=== PATIENT | female | born 1945 | race Hispanic/Latino ===

== ENCOUNTER 2017-12-05 15:30 | Observation (INO) | payer OTHER, MEDICARE ==
[~2017-12-05] VITALS: Ht 157.5 cm; Wt 97.1 kg
[~2017-12-05 15:30] MED LIST: FENO145T37 PO; GLIP10TA9 PO; HYDR25TA PO; ROSU10TA PO
[2017-12-05 17:01] VITALS: BP 138/64
[2017-12-05 17:15] LABS: CREATININE 1.4 mg/dL (0.5-1.5); POTASSIUM 4.1 mmol/L (3.5-5.1)
[2017-12-05 17:16] LABS: INR 0.97 (0.85-1.15); PARTIAL THROMBOPLASTIN TIME 25.4 SEC (26.3-35.5); PROTHROMBIN TIME 10.2 SEC (9.6-11.6)
[2017-12-05] MEDS ORDERED: MECL-111 PO (17:21)
[2017-12-05] MEDS ORDERED: RANI150T7 PO (17:22)
[2017-12-05] MEDS ORDERED: PREVAGEN PO (17:22)
[2017-12-05] MEDS ORDERED: FISH1CAP63 PO (17:22)
[2017-12-05] MEDS ORDERED: LISI2.5T2 PO (17:22)
[2017-12-08] VITALS (22 sets, daily range): BP systolic 35–149; BP diastolic 58–80
[2017-12-08] MEDS ORDERED: SODIUM CHLORIDE 0.9% 1000ML 1,000 ML IV ONE (07:50)
[2017-12-08] MEDS: CEFAZOLIN SODIUM 1 GM VIAL IVP ONE ×2 (07:59→10:25)
[2017-12-08] MEDS ORDERED: WATER FOR INJECTION,STERILE 20 ML VIAL IJ ONE (08:00)
[2017-12-08] MEDS ORDERED: ACETAMINOPHEN EXTRA STRENGTH 500 MG TABLET ONE (08:26)
[2017-12-08] MEDS ORDERED: OXYCODONE HCL 10 MG TAB.SR.12H PO ONE (08:27)
[2017-12-08] MEDS ORDERED: KETOROLAC TROMETHAMINE 15MG/ML ONE (08:27)
[2017-12-08] MEDS ORDERED: CEFAZOLIN SODIUM 1 GM VIAL ONE (09:36)
[2017-12-08] MEDS ORDERED: BUPIVACAINE/EPI/PF 0.25% 30ML VIAL IJ ONE (09:36)
[2017-12-08] MEDS ORDERED: TRANEXAMIC ACID 1000MG/10ML IV ONE (09:37)
[2017-12-08] MEDS ORDERED: ROPIVACAINE 0.5% 5MG/ML 30ML IJ ONE (10:02)
[2017-12-08] MEDS ORDERED: DEXAMETHASONE SOD PHOSPHATE 10MG/ML 1ML VIAL ONE (10:03)
[2017-12-08] MEDS ORDERED: LIDOCAINE PF 2% 5ML ABBOJECT ONE (10:03)
[2017-12-08] MEDS ORDERED: MIDAZOLAM HCL 1 MG/ML 2ML VIAL ONE (10:03)
[2017-12-08] MEDS ORDERED: PROPOFOL 10 MG/ML 20ML VIAL IV ONE (10:03)
[2017-12-08] MEDS ORDERED: GLYCOPYRROLATE 0.2 MG/ML 5 ML VIAL ONE (10:03)
[2017-12-08] MEDS ORDERED: FENTANYL CITRATE PF 50 MCG/1 ML 2ML VIAL ONE ×2 (10:03→10:52)
[2017-12-08] MEDS ORDERED: ONDANSETRON HCL 4 MG/2 ML VIAL ONE (10:03)
[2017-12-08] MEDS ORDERED: FERROUS FUMARATE 324 MG TABLET PO PRN (12:00)
[2017-12-08] MEDS ORDERED: POTASSIUM CHLORIDE 20MEQ/100ML 100 ML IV PRN (12:00)
[2017-12-08] MEDS ORDERED: LIDOCAINE HCL-MPF 1% 2ML VIAL IVP PRN (12:00)
[2017-12-08] MEDS ORDERED: TEMAZEPAM 15 MG CAPSULE PO PRN (12:00)
[2017-12-08] MEDS: ACETAMINOPHEN EXTRA STRENGTH 500 MG TABLET PO SCH ×2 (12:00→22:01)
[2017-12-08] MEDS ORDERED: ONDANSETRON HCL 4 MG/2 ML VIAL IVP PRN (12:00)
[2017-12-08] MEDS ORDERED: POTASSIUM CHLORIDE 20 MEQ ERTAB PO PRN (12:00)
[2017-12-08] MEDS ORDERED: POTASSIUM CHLORIDE 10% ELIXIR 20 MEQ/15 ML UDCUP PO PRN (12:00)
[2017-12-08] MEDS ORDERED: TRAMADOL HCL 50 MG TABLET PO PRN (12:00)
[2017-12-08] MEDS ORDERED: KETOROLAC TROMETHAMINE 15MG/ML IV PRN (12:00)
[2017-12-08] MEDS ORDERED: DiphenhydrAMINE HCL 50 MG/ML VIAL IVP PRN (12:00)
[2017-12-08] MEDS ORDERED: CALCIUM CARBONATE 500 MG TABLET PO PRN (12:00)
[2017-12-08] MEDS ORDERED: OXYCODONE HCL 5 MG TAB PO PRN (12:00)
[2017-12-08] MEDS ORDERED: MORPHINE SULFATE 4 MG/1ML SYG ONE (12:27)
[2017-12-08] MEDS ORDERED: MEPERIDINE-PF 25 MG/ML SYG ONE (12:40)
[2017-12-08] MEDS: INSULIN HUMULIN R 100 UNIT/ML 3ML SQ SCH ×2 (16:23→21:00)
[2017-12-08] MEDS ORDERED: CEFAZOLIN 2GM / 50 ML 50 ML IV SCH (17:00)
[2017-12-08] MEDS: CEFAZOLIN SODIUM 1 GM VIAL IVP SCH (17:13)
[2017-12-08] MEDS ORDERED: MECLIZINE HCL 25 MG TABLET PO PRN (19:45)
[2017-12-08] MEDS: SODIUM CHLORIDE 0.9% 1000ML 1,000 ML IV SCH (20:11)
[2017-12-08] MEDS: PREGABALIN 25 MG CAP PO SCH (20:13)
[2017-12-08] MEDS: ASPIRIN 325 MG TABLET PO SCH (20:13)
[2017-12-08] MEDS ORDERED: NON-FORMULARY MEDICATION 1 EACH (Ranitidine HCl 150 MG) PO SCH (21:00)
[2017-12-08] MEDS ORDERED: ONDANSETRON HCL MDV 20ML 2 MG/ML VIAL IVP PRN (21:30)
[2017-12-08] MEDS: GLIPIZIDE 5 MG TABLET PO SCH (22:00)
[2017-12-08] MEDS: ATORVASTATIN CALCIUM 20 MG TABLET PO SCH (22:00)
[2017-12-09] VITALS: BP 110/63
[2017-12-09] MEDS: CEFAZOLIN SODIUM 1 GM VIAL IVP SCH (01:05)
[2017-12-09] MEDS: ACETAMINOPHEN EXTRA STRENGTH 500 MG TABLET PO SCH ×3 (02:50→21:38)
[2017-12-09 03:48] VITALS: BP 109/51
[2017-12-09 06:22] LABS: HEMATOCRIT 28.2 % (36-48); MEAN CORPUSCULAR HEMOGLOBIN 31.6 pg (27.0-33.0); MEAN CORPUSCULAR HGB CONC 35.5 g/dL (32.0-36.0); MEAN CORPUSCULAR VOLUME 88.8 fL (79-99); PLATELET COUNT (AUTO) 137 K/uL (130-400); RED BLOOD CELL COUNT(AUTO) 3.18 MIL/uL (4.00-5.50); RED CELL DISTRIBUTION WIDTH 13.7 % (11.0-15.5); WHITE BLOOD COUNT (AUTO) 7.1 K/uL (4.8-10.8)
[2017-12-09] MEDS: INSULIN HUMULIN R 100 UNIT/ML 3ML SQ SCH ×3 (06:32→16:29)
[2017-12-09 06:35] LABS: CREATININE 1.4 mg/dL (0.5-1.5); POTASSIUM 3.9 mmol/L (3.5-5.1)
[2017-12-09 07:49] VITALS: BP 141/93
[2017-12-09] MEDS: SODIUM CHLORIDE 0.9% 1000ML 1,000 ML IV SCH (07:52)
[2017-12-09] MEDS: ASPIRIN 325 MG TABLET PO SCH ×2 (08:53→21:36)
[2017-12-09] MEDS: GLIPIZIDE 5 MG TABLET PO SCH ×2 (08:53→21:36)
[2017-12-09] MEDS: PREGABALIN 25 MG CAP PO SCH ×2 (08:53→21:36)
[2017-12-09] MEDS ORDERED: FAMOTIDINE 20MG TAB 20 MG TAB PO SCH (09:00)
[2017-12-09] MEDS ORDERED: HYDROCHLOROTHIAZIDE 25 MG TABLET PO SCH (09:00)
[2017-12-09] MEDS ORDERED: FENOFIBRATE NANOCRYSTALLIZED 145 MG TAB PO SCH (09:00)
[2017-12-09] MEDS ORDERED: PREVAGEN PO SCH (09:00)
[2017-12-09] MEDS ORDERED: LISINOPRIL 2.5 MG TABLET PO SCH (09:00)
[2017-12-09] MEDS ORDERED: POLYETHYLENE GLYCOL 3350 17 GM POWD.PACK PO SCH (09:00)
[2017-12-09] MEDS: OXYCODONE HCL 5 MG TAB PO PRN ×2 (11:18→21:18)
[2017-12-09 11:36] VITALS: BP 115/58
[2017-12-09 16:25] VITALS: BP 98/65
[2017-12-09] MEDS ORDERED: HYDR-309 PO (18:47)
[2017-12-09] MEDS ORDERED: ASPI-1012 PO (18:47)
[2017-12-09 20:00] VITALS: BP 125/64
[2017-12-09] MEDS: ATORVASTATIN CALCIUM 20 MG TABLET PO SCH (21:36)
[2017-12-11] MEDS ORDERED: BISACODYL 10 MG SUPP.RECT RC PRN (12:00)
== END 2017-12-09 21:45 ==
LOC: INTOOBSV 12-08 07:10 → DAHIP 12-08 07:10 → 4AH 12-08 14:05 → EDSTATUS 12-08 15:30
PROVIDERS: ADMIT Orthopaedic Surgery; ATTEND Orthopaedic Surgery
DX: M17.11 Unilateral primary osteoarthritis, right knee (principal); M06.9 Rheumatoid arthritis, unspecified; E11.9 Type 2 diabetes mellitus without complications; Z96.651 Presence of right artificial knee joint; Z96.652 Presence of left artificial knee joint; Z98.51 Tubal ligation status; Z98.41 Cataract extraction status, right eye; Z82.49 Family history of ischemic heart disease and other diseases of the circulatory system; Z83.3 Family history of diabetes mellitus
CPT/HCPCS: 27447; 36415 ×2; 80048 ×2; 82948 ×8; 85027; 85610; 85730; 88305; 88311; 96374; 96375; 96376; 97116 ×3; 97161; 97530 ×2; A4218 ×2; A4649 ×5; A4930 ×3; A9272; C1763; C1776; G0378 ×40; G8978; G8979; G8980; G8981; G8982; G8983; J0690 ×4; J1100; J1885 ×2; J2001; J2175; J2250; J2270; J2405; J2704; J2795; J3010 ×2; J3490 ×3; J7030 ×3

== ENCOUNTER 2021-08-16 03:50 | Emergency (ER) | payer OTHER, MEDICARE ==
[~2021-08-16] VITALS: Ht 165.1 cm; Wt 99.8 kg
[~2021-08-16 03:50] MED LIST changes: +ASPI-1012 PO; +FENO145T26 PO; -FENO145T37 PO; +FISH1CAP63 PO; +HYDR-4457 PO; +LISI2.5T13 PO; +MECL-160 PO; +PREVAGEN PO; +RANI150T7 PO; -ROSU10TA PO; +ROSU10TA22 PO
[2021-08-16 08:55] LABS: EOSINOPHILS % (AUTO) 0.2 % (0.0-8.0); HEMATOCRIT 34.4 % (36-48); LYMPHOCYTES % (AUTO) 27.4 % (21.0-51.0); MEAN CORPUSCULAR HEMOGLOBIN 29.1 pg (27.0-33.0); MEAN CORPUSCULAR HGB CONC 32.3 g/dL (32.0-36.0); MEAN CORPUSCULAR VOLUME 90.3 fL (79-99); NEUTROPHILS % (AUTO) 62.2 % (40.0-77.0); PLATELET COUNT (AUTO) 125 K/uL (130-400); RED BLOOD CELL COUNT(AUTO) 3.81 MIL/uL (4.00-5.50); RED CELL DISTRIBUTION WIDTH 13.1 % (11.0-15.5); WHITE BLOOD COUNT (AUTO) 4.4 K/uL (4.8-10.8)
[2021-08-16] MEDS ORDERED: ACETAMINOPHEN 500 MG TABLET PO ONE (09:00)
[2021-08-16] MEDS ORDERED: LACTATED RINGERS 500 ML 500 ML IV ONE (09:00)
[2021-08-16] MEDS ORDERED: LACTATED RINGERS 1000ML 1,000 ML IV ONE (09:07)
[2021-08-16 09:12] LABS: CREATININE 1.6 mg/dL (0.5-1.5)
[2021-08-16 09:24] LABS: B-TYPE NATRIURETIC PEPTIDE 21 pg/mL (0-100)
[2021-08-16 09:25] LABS: ALBUMIN 3.7 g/dL (3.5-5.0); BILIRUBIN,TOTAL 0.4 mg/dL (0.2-1.0); TOTAL PROTEIN, SERUM 7.5 g/dL (6.0-8.3)
[2021-08-16 09:31] LABS: APPEARANCE,URINE Clear (CLEAR); BILIRUBIN,URINE Negative (NEGATIVE); COLOR,URINE Yellow (YELLOW); GLUCOSE, URINE (UA) Negative (NEGATIVE); KETONES,URINE Negative (NEGATIVE); LEUKOCYTE ESTERASE ,URINE Moderate (NEGATIVE); NITRATE,URINE Negative (NEGATIVE); OCCULT BLOOD,URINE Negative (NEGATIVE); PH,URINE 5.5 (5.0-8.0); PROTEIN,URINE Trace mg/dL (NEGATIVE)
[2021-08-16 09:32] LABS: RBC,URINE 0-1 /HPF (0-1); WBC,URINE 0-1 /HPF (0-1)
[2021-08-16 09:33] LABS: BACTERIA,URINE Rare /HPF (None Seen); SQUAMOUS EPITHELIAL CELL,UR Few /HPF (0-2)
[2021-08-16] MEDS ORDERED: CEFTRIAXONE 1G VIAL IVP ONE (10:00)
[2021-08-16] MEDS ORDERED: ACETAMINOPHEN 500 MG TABLET ONE (10:25)
[2021-08-17 14:00] VITALS: BP 115/66
== END 2021-08-16 16:43 | disposition home or self-care (01) ==
LOC: EDH 03:50
DX: U07.1 COVID-19 (principal); R41.82 Altered mental status, unspecified; E11.9 Type 2 diabetes mellitus without complications; F03.90 Unspecified dementia, unspecified severity, without behavioral disturbance, psychotic disturbance, mood disturbance, and anxiety; I10 Essential (primary) hypertension; R50.9 Fever, unspecified; Z79.82 Long term (current) use of aspirin; Z88.2 Allergy status to sulfonamides; Z88.1 Allergy status to other antibiotic agents; Z79.84 Long term (current) use of oral hypoglycemic drugs; Z79.899 Other long term (current) drug therapy
CPT/HCPCS: 36415; 71045; 80053; 81001; 82550; 83874; 83880; 84145; 84484 ×2; 85025; 87040 ×2; 87088; 87635; 93005; 96361; 96374; 97039 ×2; 97161; 99285; C9803; J0696; J7120